=== PATIENT | female | born 1950 ===

== ENCOUNTER 2023-07-07 05:35 | Emergency (ER) | payer OTHER ==
[2023-07-07] MEDS ORDERED: FENTANYL CITR 100 MCG/2 ML ONE (06:32)
[2023-07-07] MEDS ORDERED: ONDANSETRON 4 MG/2 ML VIAL ONE (06:32)
[2023-07-07 06:33] LABS: Absolute Lymphocytes (CBC) 1.6 K/uL (0.7-4.9); Hematocrit 35.6 % (36.0-45.0); Lymphocytes % 28.8 % (15.3-44.8); MCV 85.7 fL (80-100); MPV 9.4 fL (7.6-11.3); Platelets 154 thou/uL (152-406); RBC Red Blood Cell Count 4.16 M/uL (3.86-4.86)
[2023-07-07] MEDS ORDERED: NA CHLORIDE 0.9% 500 ML ONE (06:33)
[2023-07-07 06:39] LABS: Potassium 3.9 mEq/L (3.5-5.1)
--- NOTE | 2023-07-07 08:19 | RAD REPORT ---
EXAM DESCRIPTION: CT - Head C Spine Cap Wo Con - 07/07/2023 7:03 am CLINICAL HISTORY: Trauma, head and neck injury. Chest, abdomen and pelvis pain. PAIN COMPARISON: <Comparisons> TECHNIQUE: CT head without contrast. CT cervical spine without contrast with coronal and sagittal reformatted images. CT chest, abdomen and pelvis without contrast with coronal and sagittal reformatted images of the spi ne. All CT scans are performed using dose optimization technique as appropriate and may include automated exposure control or mA/KV adjustment according to patient size. FINDINGS: CT HEAD WITHOUT CONTRAST: No intracranial hemorrhage, hydrocephalus or extra-axial fluid collection. No areas of brain edema o r midline shift. The paranasal sinuses and mastoids are clear. The calvarium is intact. CT CERVICAL SPINE WITHOUT CONTRAST: No fracture or subluxation. Moderate mid and lower cervical degenerative changes. The prevertebral so ft tissues are normal in thickness. CT CHEST, ABDOMEN, PELVIS WITHOUT CONTRAST: NOTE: Lack of contrast is a significant limitation in the assessment of trauma related findings. Spec ifically, solid organ, vascular and bowel evaluation is significantly limited. The lungs are clear.No pneumothorax or pericardial/pleural fluid. No evidence of intra-abdominal visceral injury, free fluid or free air is seen within the above detai led limitations. No pelvic mass or hematoma. Subtle nondisplaced fractures suspected inferior most sacral segment. IMPRESSION: Subtle nondisplaced fracture inferior most sacral segment.
--- NOTE | 2023-07-07 08:35 | RAD REPORT ---
EXAM DESCRIPTION: RAD - Pelvis - 07/07/2023 7:18 am CLINICAL HISTORY: PAIN COMPARISON: <Comparisons> FINDINGS: [id number] osteoarthritis of both hips is seen. No fracture, dislocation or AVN. Sym metric sacroiliac joints. Sacrum is suboptimally visualized.
--- NOTE | 2023-07-07 08:35 | ER ---
Nurse's Notes [facility] Name: Ashtyn Abebe Age: 72 yrs Sex: Female : 1950 Arrival Date: 07/07/2023 Time: 05:35 Bed 20 Private MD: Diagnosis: Fall on same level, unspecified;Fracture of coccyx;Low back pain Presentation: 07/07 05:38 Chief complaint: EMS states: 72 year old female was coming back from the bathroom when ha1 she fell. she reports pain on the sacrum area. She did hit her head. No LOC. No blood thinners. 05:38 Coronavirus screen: Vaccine status:. Ebola Screen: No symptoms or risks identified at 1 this time. Initial Sepsis Screen: Does the patient meet any 2 criteria? No. Patient's initial sepsis screen is negative. Does the patient have a suspected source of infection? No. Patient's initial sepsis screen is negative. Risk Assessment: Do you want to hurt yourself or someone else? Patient reports no desire to harm self or others. Onset of symptoms was July 07, 2023. 05:38 Method Of Arrival: EMS: [facility] ha1 05:38 Acuity: YULIANA 3 ha1 Triage Assessment: 05:38 General: Appears uncomfortable, Behavior is calm, cooperative. Pain: Complains of pain ha1 in buttocks and coccyx and sacrum Pain does not radiate. Pain currently is 9 out of 10 on a pain scale. Quality of pain is described as throbbing. Neuro: Level of Consciousness is awake, alert, obeys commands, Oriented to person, place, time, situation. Cardiovascular: Patient's skin is warm and dry. Respiratory: Airway is patent Respiratory effort is even, unlabored, Respiratory pattern is regular, symmetrical. GI: No signs and/or symptoms were reported involving the gastrointestinal system. : No signs and/or symptoms were reported regarding the genitourinary system. Derm: Skin is pink, warm \T\ dry. Bruising that is bright red, on left arm. Musculoskeletal: Circulation, motion, and sensation intact. Reports pain in buttocks and sacrum and lumbar area. Historical: - Allergies: 05:53 Aleve (swelling); ha1 05:38 Phenergan; ha1 05:38 ceftriaxone; ha1 - Immunization history:: Adult Immunizations up to date. - Social history:: Smoking status: Patient denies any tobacco usage or history of. - Family history:: not pertinent. Screenin:54 Abuse screen: Denies threats or abuse. Denies injuries from another. Nutritional ha1 screening: No deficits noted. Tuberculosis screening: No symptoms or risk factors identified. 09:07 [facility] ED Fall Risk Assessment (Adult) History of falling in the last 3 months, ph including since admission Yes- single mechanical fall (1 pt) Confusion or Disorientation No (0 pts) Intoxicated or Sedated No (0 pts) Impaired Gait No (0 pts) Mobility Assist Device Used No (0 pt) Altered Elimination No (0 pt) Score/Fall Risk Level 0 - 2 = Low Risk Oriented to surroundings, Maintained a safe environment, Provided non-skid footwear, Hourly rounding (assess needs \T\ fall precautionary measures) done. Assessment: 05:38 Reassessment: SEE TRIAGE ASSESSMENT. ha1 06:35 Reassessment: Patient and/or family updated on plan of care and expected duration. Pain ha1 level reassessed. Patient is alert, oriented x 3, equal unlabored respirations, skin warm/dry/pink. PAIN 5/10 Patient states symptoms have improved. 06:50 Reassessment: GOING TO CT. ha1 07:33 Reassessment: Patient appears in no apparent distress at this time. Patient and/or ph family updated on plan of care and expected duration. Pain level reassessed. Patient is alert, oriented x 3, equal unlabored respirations, skin warm/dry/pink. Vital Signs: 05:38 BP 133 / 48; Pulse 62; Resp 16 S; Temp 97.9(O); Pulse Ox 98% on R/A; Weight 79.83 kg; ha1 Height 5 ft. 5 in. ; 06:21 BP 128 / 49; Pulse 93; Resp 18 S; Pulse Ox 98% on R/A; ha1 06:45 BP 126 / 65; Pulse 65; Resp 15 S; Pulse Ox 96% on R/A; ha1 07:33 BP 125 / 68; Pulse 69; Resp 18; Pulse Ox 98% on R/A; ph 09:09 BP 135 / 62; Pulse 68; Resp 18; Temp 97.9; Pulse Ox 98% on R/A; ph 05:38 Body Mass Index 29.29 (79.83 kg, 165.1 cm) ha1 ED Course: 05:38 Patient arrived in ED. ha1 05:45 John Mclean MD is Attending Physician. [facility] 05:53 Triage completed. ha1 06:10 Inserted saline lock: 22 gauge in right forearm, using aseptic technique. Blood ha1 collected. 06:18 Basic Metabolic Panel Sent. ha1 06:18 CBC with Diff Sent. ha1 06:18 Type And Screen Sent. ha1 06:44 Mary Ann Moreno, RN is Primary Nurse. ha1 07:05 CT Traumagram (Head C Spine CAP wo con) In Process Unspecified. EDMS 07:20 Sacrum And Coccyx XRAY In Process Unspecified. EDMS 07:20 Pelvis XRAY In Process Unspecified. EDMS 09:06 Arm band placed on. ph 09:08 No provider procedures requiring assistance completed. IV discontinued, intact, ph bleeding controlled, No redness/swelling at site. Pressure dressing applied. 09:08 Patient has correct armband on for positive identification. Bed in low position. Call ph light in reach. Side rails up X 1. Administered Medications: 06:15 Drug: NS 0.9% IV 500 ml IV at bolus once Route: IV; Rate: bolus; Site: right forearm; ha1 06:59 Follow up: Response: No adverse reaction; IV Status: Completed infusion; IV Intake: ha1 500ml 06:16 Drug: Ondansetron IVP 4 mg IVP once; over 2 minutes Route: IVP; Site: right forearm; ha1 06:18 Drug: fentaNYL (PF) IVP 50 mcg IVP once Route: IVP; Site: right forearm; ha1 09:04 Drug: HYDROcodone-acetaminophen PO 5 mg-325 mg 2 tabs PO once Route: PO; ph 09:09 Follow up: Response: No adverse reaction; Medication administered at discharge. ph 09:04 Drug: Ondansetron PO 4 mg PO once Route: PO; ph 09:09 Follow up: Response: No adverse reaction; Medication administered at discharge. ph Medication: 09:07 VIS not applicable for this client. ph Intake: 06:59 IV: 500ml; Total: 500ml. ha1 Outcome: 08:35 Discharge ordered by . cp3 09:08 Discharged to home via wheelchair, with family, ph 09: Condition: good : Discharge instructions given to patient, family, Instructed on discharge instructions, follow up and referral plans. medication usage, Demonstrated understanding of instructions, follow-up care, medications, Prescriptions given X 2, : Patient left the ED. ph Signatures: Dispatcher [employer] EDJohn Salas MD MD cha Pinckney, MD KAILA Andre cp3 Lina Saez RN RN Mary Ann Moreno RN RN 1
--- NOTE | 2023-07-07 08:36 | EDPHYS ---
Physician Documentation [facility] Name: Ashtyn Abebe Age: 72 yrs Sex: Female : 1950 Arrival Date: 07/07/2023 Time: 05:35 Bed 20 Private MD: ED Physician John Mclean HPI: 07/07 06:27 This 72 yrs old Female presents to ER via EMS with complaints of fall to angelita buttock, pain. 06:27 The patient presents with pain and decreased range of motion, and an injury. The angelita symptoms are located in the coccyx area, lumbar area and sacrum. The pain does not radiate. The problem was sustained from a direct blow. Onset: The symptoms/episode began/occurred this morning, today. Modifying factors: The patient symptoms are alleviated by nothing, the patient symptoms are aggravated by any movement. Associated signs and symptoms: Pertinent positives:. Details of fall: The patient fell from an upright position, while walking. Onset: The symptoms/episode began/occurred this morning, today. Severity of symptoms: At their worst the symptoms were moderate, in the emergency department the symptoms are unchanged. Historical: - Allergies: 05:53 Aleve (swelling); ha1 05:38 Phenergan; ha1 05:38 ceftriaxone; ha1 - Immunization history:: Adult Immunizations up to date. - Social history:: Smoking status: Patient denies any tobacco usage or history of. - Family history:: not pertinent. ROS: 06:27 Constitutional: Negative for fever, chills, and weight loss, Eyes: Negative for injury, angelita pain, redness, and discharge, ENT: Negative for injury, pain, and discharge, Neck: Negative for injury, pain, and swelling, Cardiovascular: Negative for chest pain, palpitations, and edema, Respiratory: Negative for shortness of breath, cough, wheezing, and pleuritic chest pain, Abdomen/GI: Negative for abdominal pain, nausea, vomiting, diarrhea, and constipation, Back: Negative for injury and pain, : Negative for injury, bleeding, discharge, and swelling, Skin: Negative for injury, rash, and discoloration, Neuro: Negative for headache, weakness, numbness, tingling, and seizure, Psych: Negative for depression, anxiety, suicide ideation, homicidal ideation, and hallucinations, Allergy/Immunology: Negative for hives, rash, and allergies, Endocrine: Negative for neck swelling, polydipsia, polyuria, polyphagia, and marked weight changes, 06:27 MS/extremity: Positive for decreased range of motion, pain, of the coccyx, Exam: 06:27 Constitutional: This is a well developed, well nourished patient who is awake, alert, angelita and in no acute distress. Head/Face: Normocephalic, atraumatic. Eyes: Pupils equal round and reactive to light, extra-ocular motions intact. Lids and lashes normal. Conjunctiva and sclera are non-icteric and not injected. Cornea within normal limits. Periorbital areas with no swelling, redness, or edema. ENT: Nares patent. No nasal discharge, no septal abnormalities noted. Tympanic membranes are normal and external auditory canals are clear. Oropharynx with no redness, swelling, or masses, exudates, or evidence of obstruction, uvula midline. Mucous membranes moist. Neck: Trachea midline, no thyromegaly or masses palpated, and no cervical lymphadenopathy. Supple, full range of motion without nuchal rigidity, or vertebral point tenderness. No Meningismus. Chest/axilla: Normal chest wall appearance and motion. Nontender with no deformity. No lesions are appreciated. Cardiovascular: Regular rate and rhythm with a normal S1 and S2. No gallops, murmurs, or rubs. Normal PMI, no JVD. No pulse deficits. Respiratory: Lungs have equal breath sounds bilaterally, clear to auscultation and percussion. No rales, rhonchi or wheezes noted. No increased work of breathing, no retractions or nasal flaring. Abdomen/GI: Soft, non-tender, with normal bowel sounds. No distension or tympany. No guarding or rebound. No evidence of tenderness throughout. Female : Normal external genitalia. Skin: Warm, dry with normal turgor. Normal color with no rashes, no lesions, and no evidence of cellulitis. MS/ Extremity: Pulses equal, no cyanosis. Neurovascular intact. Full, normal range of motion. Neuro: Awake and alert, GCS 15, oriented to person, place, time, and situation. Cranial nerves II-XII grossly intact. Motor strength 5/5 in all extremities. Sensory grossly intact. Cerebellar exam normal. Normal gait. Psych: Awake, alert, with orientation to person, place and time. Behavior, mood, and affect are within normal limits. 06:27 Back: ROM is normal, normal spinal alignment noted, CVA tenderness, is absent, vertebral tenderness, is not appreciated, muscle spasm, is not present, Vital Signs: 05:38 BP 133 / 48; Pulse 62; Resp 16 S; Temp 97.9(O); Pulse Ox 98% on R/A; Weight 79.83 kg; ha1 Height 5 ft. 5 in. ; 06:21 BP 128 / 49; Pulse 93; Resp 18 S; Pulse Ox 98% on R/A; ha1 06:45 BP 126 / 65; Pulse 65; Resp 15 S; Pulse Ox 96% on R/A; ha1 07:33 BP 125 / 68; Pulse 69; Resp 18; Pulse Ox 98% on R/A; ph 09:09 BP 135 / 62; Pulse 68; Resp 18; Temp 97.9; Pulse Ox 98% on R/A; ph 05:38 Body Mass Index 29.29 (79.83 kg, 165.1 cm) [facility] [place] MDM: 05:45 Patient medically screened. angelita 06:30 Differential diagnosis: contusion. Data reviewed: vital signs, nurses notes, lab test [facility] result(s), radiologic studies, CT scan. Consideration of Admission/Observation Escalation of care including admission/observation considered. I considered the following discharge prescriptions or medication management in the emergency department Medications were administered in the Emergency Department. See MAR. Independent interpretation of the following test(s) in the Emergency Department CT Scan: My interpretation is ct lumbar. Test considered but Not performed: MRI: no mri. Historians other than the Patient: Family Member: daughter. Care significantly affected by the following chronic conditions: neg. 07/07 05:46 Order name: Basic Metabolic Panel; Complete Time: 07:17 [facility] 07/07 05:46 Order name: CBC with Diff; Complete Time: 07:17 [facility] 07/07 05:46 Order name: Type And Screen; Complete Time: 07:51 [facility] 07/07 05:46 Order name: CT Traumagram (Head C Spine CAP wo con); Complete Time: 08:33 angelita 07/07 05:46 Order name: Sacrum And Coccyx XRAY [facility] 07/07 05:46 Order name: Pelvis XRAY [facility] 07/07 05:46 Order name: Labs collected and sent; Complete Time: 06:18 angelita Administered Medications: 06:15 Drug: NS 0.9% IV 500 ml IV at bolus once Route: IV; Rate: bolus; Site: right forearm; ha1 06:59 Follow up: Response: No adverse reaction; IV Status: Completed infusion; IV Intake: ha1 500ml 06:16 Drug: Ondansetron IVP 4 mg IVP once; over 2 minutes Route: IVP; Site: right forearm; ha1 06:18 Drug: fentaNYL (PF) IVP 50 mcg IVP once Route: IVP; Site: right forearm; ha1 09:04 Drug: HYDROcodone-acetaminophen PO 5 mg-325 mg 2 tabs PO once Route: PO; ph 09:09 Follow up: Response: No adverse reaction; Medication administered at discharge. ph 09:04 Drug: Ondansetron PO 4 mg PO once Route: PO; ph 09:09 Follow up: Response: No adverse reaction; Medication administered at discharge. ph Disposition Summary: 07/07/23 08:35 Discharge Ordered Notes: Location: Home cp3 Problem: new cp3 Symptoms: have improved cp3 Condition: Stable cp3 Diagnosis - Fall on same level, unspecified cp3 - Fracture of coccyx cp3 - Low back pain cp3 Followup: angelita - With: Private Physician - When: 2 - 3 days - Reason: Recheck today's complaints, Continuance of care, Re-evaluation by your physician Discharge Instructions: - Discharge Summary Sheet angelita - Acute Back Pain, Adult angelita - Fall Prevention in the Home, Adult angelita - Musculoskeletal Pain angelita - Fall Prevention in the Home, Adult, [id number] [facility] Forms: - Medication Reconciliation Form cp3 - Thank You Letter cp3 - Antibiotic Education cp3 - Prescription Opioid Use cp3 - Patient Portal Instructions cp3 - Leadership Thank You Letter cp3 Prescriptions: - acetaminophen-codeine 300-30 mg Oral tablet - take 2 tablet ORAL route every 6 hours; 24 tablet; Refills: 0, Product [facility] Selection Permitted - Valium 5 mg Oral Tablet - take 1 tablet ORAL route every 8 hours As needed; 20 tablet; Refills: 0, angelita Product Selection Permitted Signatures: Dispatcher [employer] John Yoo MD MD cha Pinckney, Cwanza, MD MD 3 Lina Saez RN RN Moreno, Mary Ann, RN RN ha1
--- NOTE | 2023-07-07 08:38 | RAD REPORT ---
EXAM DESCRIPTION: RAD - Sacrum And Coccyx - 07/07/2023 7:18 am CLINICAL HISTORY: PAIN COMPARISON: <Comparisons> FINDINGS: Diffuse osteopenia is seen. Moderately severe lumbar degenerative changes are present. Sub tle cortical irregularity of the inferior most sacral segment likely a subtle nondisplaced fracture.
[2023-07-07] MEDS ORDERED: HYDROCODONE/APAP 5/325 MG TAB ONE (08:57)
[2023-07-07] MEDS ORDERED: ONDANSETRON 4 MG (ODT) TAB ONE (08:57)
[2023-07-07 09:14] VITALS: TEMP 97.9
[2023-07-07 09:19] VITALS: O2SAT 98
[2023-07-07 09:21] VITALS: BP 135/62
== END 2023-07-07 09:09 | disposition home or self-care (01) ==
LOC: ER 05:35
DX: S32.2XXA Fracture of coccyx, initial encounter for closed fracture (principal); W18.30XA Fall on same level, unspecified, initial encounter; Z88.6 Allergy status to analgesic agent; Z88.8 Allergy status to other drugs, medicaments and biological substances
CPT/HCPCS: 96361; 85025; 80048; 36415; 86900; 86850; 86901; 70450; 71250; 72125; 72220; 72170; 96375; 96374; 99284; Q0162; J3010; J2405; J7040